=== PATIENT | female | born 1995 | race Caucasian/White ===

== ENCOUNTER 2017-02-16 03:15 | Inpatient (IN) | payer OTHER ==
[~2017-02-16] VITALS: Ht 157.5 cm; Wt 101.6 kg
[~2017-02-16 03:15] MED LIST: FERR-193 PO
[2017-02-16] MEDS ORDERED: TERBUTALINE 1 MG/ML VIAL SUBQ SCH (03:40)
[2017-02-16] MEDS ORDERED: TERBUTALINE 1 MG/ML VIAL SUBQ ONE ×2 (03:41→04:40)
[2017-02-16] MEDS ORDERED: AMPICILLIN 2,000 MG in NACL 0.9% MINI-BAG PLUS 100 ML IV SCH (03:55)
[2017-02-16] MEDS ORDERED: PREN1SGL25 PO (03:56)
[2017-02-16 04:00] VITALS: BP 117/71
[2017-02-16] MEDS ORDERED: AMPICILLIN 2,000 MG VIAL ONE ×6 (04:31→23:57)
[2017-02-16] MEDS ORDERED: BETAMETH ACET/BETAMETH NA PH 30 MG/5 ML VIAL IM ONE ×2 (05:15→18:35)
--- NOTE | 2017-02-16 09:09 | NUR ---
PATIENT HAS BEEN SCREENED AND CATEGORIZED LOW NUTRITION RISK. PATIENT WILL BE SEEN WITHIN 7 DAYS OF ADMISSION. 02/22/[address]
[2017-02-16] MEDS ORDERED: NIFEdipine 10 MG CAPLF PO SCH (10:10)
[2017-02-16] MEDS ORDERED: NIFEdipine 10 MG CAPLF PO PRN (10:15)
[2017-02-16] MEDS ORDERED: NIFEdipine 10 MG CAPLF ONE ×8 (10:27→23:57)
[2017-02-16] MEDS: LACTATED RINGERS 1,000 ML IV SCH ×2 (10:38→20:08)
[2017-02-16] MEDS: NIFEdipine 10 MG CAPLF PO SCH ×5 (10:43→16:30)
[2017-02-16] MEDS: MORPHINE SULFATE 10 MG/ML SYR IVP PRN (12:31)
[2017-02-16] MEDS ORDERED: MORPHINE SULFATE 10 MG/ML SYR ONE ×2 (12:33→21:10)
[2017-02-16] MEDS: AMPICILLIN 2,000 MG in NACL 0.9% 100 ML IV SCH ×2 (16:45→20:04)
[2017-02-16] MEDS: BETAMETH ACET/BETAMETH NA PH 30 MG/5 ML VIAL IM SCH (18:28)
[2017-02-17] MEDS: LACTATED RINGERS 1,000 ML IV SCH ×2 (02:35→06:51)
[2017-02-17] MEDS ORDERED: AMPICILLIN 2,000 MG VIAL ONE ×5 (03:52→23:13)
[2017-02-17] MEDS ORDERED: NIFEdipine 10 MG CAPLF ONE ×3 (03:53→14:39)
[2017-02-17] MEDS ORDERED: MORPHINE SULFATE 10 MG/ML SYR ONE (23:33)
[2017-02-18] MEDS ORDERED: AMPICILLIN 2,000 MG VIAL ONE ×4 (03:26→15:01)
[2017-02-18] MEDS ORDERED: ACETAMINOPHEN 325 MG TAB PO PRN (07:50)
[2017-02-18] MEDS ORDERED: ACETAMINOPHEN 325 MG TAB ONE (08:13)
[2017-02-18] MEDS: BETAMETH ACET/BETAMETH NA PH 30 MG/5 ML VIAL IM SCH (08:15)
[2017-02-18] MEDS ORDERED: BETAMETH ACET/BETAMETH NA PH 30 MG/5 ML VIAL IM ONE (08:22)
[2017-02-18] MEDS: AMPICILLIN 2,000 MG in NACL 0.9% 100 ML IV SCH ×2 (10:57→15:06)
[2017-02-18] MEDS: LACTATED RINGERS 1,000 ML IV SCH (10:58)
[2017-02-18] MEDS: MORPHINE SULFATE 10 MG/ML SYR IVP PRN (11:08)
[2017-02-18] MEDS ORDERED: MORPHINE SULFATE 10 MG/ML SYR ONE (11:14)
--- NOTE | 2017-02-18 13:25 | NUR ---
CM NOTE INITIAL REVIEW FAXED TO [facility] [phone] ENE # [phone]
== END 2017-02-18 18:35 | disposition home or self-care (01) | DRG 566 ==
LOC: MLD 03:15 → OBSVTOIN 02-18 09:49
PROVIDERS: ADMIT Obstetrics & Gynecology; ATTEND Obstetrics & Gynecology
DX: O62.9 Abnormality of forces of labor, unspecified (principal); Z3A.36 36 weeks gestation of pregnancy
CPT/HCPCS: G0378 ×55; 76805; 76815; J0290; J0702; J2270; J3105; J7120; Q0092

== ENCOUNTER 2017-02-19 05:45 | Inpatient (IN) | payer OTHER ==
[~2017-02-19] VITALS: Ht 157.5 cm; Wt 101.6 kg
[~2017-02-19 05:45] MED LIST changes: +PREN1SGL25 PO
[2017-02-19] MEDS ORDERED: LACTATED RINGERS 1,000 ML IV SCH (06:21)
[2017-02-19] MEDS ORDERED: CITRIC ACID/SODIUM CITRATE 30 ML UDC PO SCH (06:25)
[2017-02-19] MEDS ORDERED: METOCLOPRAMIDE 10 MG/2 ML INJ VIAL IVP SCH (06:25)
[2017-02-19 06:43] LABS: BASOPHILS # (AUTO) 0.1 K/uL (0.00-0.22); MEAN CORPUSCULAR HEMOGLOBIN 24 pg (27-31)
[2017-02-19 06:45] LABS: BASOPHILS % (AUTO) 0.7 % (0.0-2.0); EOSINOPHILS # (AUTO) 0.1 K/uL (0-0.4); EOSINOPHILS % (AUTO) 0.8 % (0.0-4.0); HEMOGLOBIN 7.1 g/dL (12.0-16.0); LYMPHOCYTES # (AUTO) 1.9 K/uL (2.5-16.5); LYMPHOCYTES % (AUTO) 16.1 % (20.5-51.1); MEAN CORPUSCULAR HGB CONC 31 g/dL (33-37); MEAN CORPUSCULAR VOLUME 76 fL (80-94); MONOCYTES # (AUTO) 0.6 K/uL (0.8-1.0); MONOCYTES % (AUTO) 4.9 % (1.7-9.3); NEUTROPHILS # (AUTO) 9.3 K/uL (1.8-7.7); NEUTROPHILS % (AUTO) 77.5 % (42.2-75.2); PLATELET COUNT (AUTO) 326 K/uL (140-450); RED BLOOD CELL COUNT(AUTO) 3.04 MIL/uL (4.20-5.40); RED CELL DISTRIBUTION WIDTH 16.3 % (11.6-13.7)
[2017-02-19 06:51] LABS: APPEARANCE,URINE HAZY (CLEAR); BILIRUBIN,URINE NEGATIVE (NEGATIVE); BLOOD, URINE TRACE-L (NEGATIVE); COLOR,URINE YELLOW (YELLOW); LEUKOCYTE ESTERASE ,URINE NEGATIVE (NEGATIVE); NITRITE, URINE NEGATIVE (NEGATIVE); UGLUCOSE NEGATIVE (NEGATIVE)
[2017-02-19 07:05] LABS: ALBUMIN 2.4 g/dL (3.4-5.0); CARBON DIOXIDE 22.6 mmol/L (21-32); CREATININE 0.8 mg/dL (0.6-1.3); POTASSIUM 3.6 mmol/L (3.5-5.1); TOTAL BILIRUBIN 0.3 mg/dL (0.0-1.0)
[2017-02-19 07:06] LABS: RBC,URINE 0-5 (RARE) /HPF (0-5); WBC,URINE 0-5 (RARE) /HPF (0-5)
[2017-02-19 07:12] LABS: PROTHROMBIN TIME 9.5 secs (10.8-13.4)
[2017-02-19] MEDS ORDERED: OXYTOCIN 20 UNITS in LACTATED RINGERS 1,000 ML IV SCH (07:30)
[2017-02-19] MEDS ORDERED: TRIMETHOBENZAMIDE 200 MG/2 ML SYR IM PRN (07:30)
[2017-02-19] MEDS ORDERED: oxyCODONE/APAP 5/325 MG 1 TAB TAB PO PRN (07:30)
[2017-02-19] MEDS ORDERED: IBUPROFEN 800 MG TAB PO PRN (07:30)
[2017-02-19] MEDS ORDERED: METHYLERGONOVINE 0.2 MG/ML AMP IM PRN (07:30)
[2017-02-19] MEDS ORDERED: MEASLES, MUMPS, AND RUBELLA 1 VIAL SQVAC PRN (07:30)
[2017-02-19] MEDS ORDERED: OXYTOCIN 10 UNITS/ML VIAL ONE (07:33)
[2017-02-19] MEDS ORDERED: ceFAZolin 1,000 MG VIAL ONE (07:33)
[2017-02-19] MEDS ORDERED: ePHEDrine 50 MG/ML VIAL ONE (07:55)
[2017-02-19] MEDS ORDERED: ONDANSETRON 4 MG/2 ML VIAL ONE (07:55)
[2017-02-19] MEDS ORDERED: BUPIVACAINE-MPF 0.75% 10 ML VIAL INJ ONE (07:55)
[2017-02-19] MEDS ORDERED: fentaNYL 0.05 MG/ML VIAL ONE (08:08)
[2017-02-19] MEDS ORDERED: MIDAZOLAM 2 MG/2 ML VIAL ONE (08:08)
[2017-02-19] MEDS ORDERED: MORPHINE PRES FREE 10 MG/10 ML AMP IV ONE (08:09)
[2017-02-19] MEDS ORDERED: KETAMINE 500 MG/5 ML VIAL ONE (08:09)
[2017-02-19] MEDS ORDERED: METHYLERGONOVINE 0.2 MG/ML AMP ONE (08:17)
[2017-02-19] MEDS ORDERED: CARBOPROST 250 MCG/ML AMP IM ONE (08:17)
[2017-02-19] MEDS ORDERED: ONDANSETRON 4 MG/2 ML VIAL IVP PRN (11:20)
[2017-02-19] MEDS ORDERED: diphenhydrAMINE 50 MG/ML VIAL IVP PRN (11:20)
[2017-02-19] MEDS ORDERED: KETOROLAC 30 MG/ML VIAL IVP PRN (11:20)
[2017-02-19] MEDS ORDERED: TEMAZEPAM 15 MG CAP PO PRN (21:00)
[2017-02-19] MEDS: SIMETHICONE 80 MG TAB.CHEW PO PRN (21:44)
[2017-02-19] MEDS: DOCUSATE SOD/SENNA 50/8.6 MG 1 TAB PO SCH (21:44)
[2017-02-20 06:19] LABS: BASOPHILS % (AUTO) 0.3 % (0.0-2.0); EOSINOPHILS # (AUTO) 0.2 K/uL (0-0.4); EOSINOPHILS % (AUTO) 1.3 % (0.0-4.0); LYMPHOCYTES # (AUTO) 1.8 K/uL (2.5-16.5); LYMPHOCYTES % (AUTO) 12.4 % (20.5-51.1); MEAN CORPUSCULAR HEMOGLOBIN 24 pg (27-31); MEAN CORPUSCULAR HGB CONC 31 g/dL (33-37); MEAN CORPUSCULAR VOLUME 75 fL (80-94); MONOCYTES # (AUTO) 0.9 K/uL (0.8-1.0); MONOCYTES % (AUTO) 6.3 % (1.7-9.3); NEUTROPHILS # (AUTO) 11.6 K/uL (1.8-7.7); NEUTROPHILS % (AUTO) 79.7 % (42.2-75.2); PLATELET COUNT (AUTO) 260 K/uL (140-450); RED BLOOD CELL COUNT(AUTO) 2.47 MIL/uL (4.20-5.40); RED CELL DISTRIBUTION WIDTH 15.8 % (11.6-13.7); WHITE BLOOD COUNT (AUTO) 14.5 K/uL (4.8-10.8)
[2017-02-20 06:35] LABS: HEMOGLOBIN 5.8 g/dL (12.0-16.0)
[2017-02-20 06:36] LABS: HEMATOCRIT 18.5 % (36-48)
[2017-02-20] MEDS: FERROUS SULFATE 325 MG TABEC PO SCH ×3 (08:39→17:59)
[2017-02-20] MEDS: HYDROcodone/APAP 5/325 MG 1 TAB TAB PO PRN ×2 (08:39→20:12)
[2017-02-20] MEDS: SIMETHICONE 80 MG TAB.CHEW PO PRN (20:12)
[2017-02-20] MEDS: DOCUSATE SOD/SENNA 50/8.6 MG 1 TAB PO SCH (20:12)
[2017-02-21] MEDS: HYDROcodone/APAP 5/325 MG 1 TAB TAB PO PRN ×3 (04:43→20:27)
[2017-02-21] MEDS: FERROUS SULFATE 325 MG TABEC PO SCH ×3 (08:43→18:08)
[2017-02-21] MEDS: SIMETHICONE 80 MG TAB.CHEW PO PRN ×2 (12:22→20:27)
[2017-02-21] MEDS: DOCUSATE SOD/SENNA 50/8.6 MG 1 TAB PO SCH (21:00)
[2017-02-22] MEDS: HYDROcodone/APAP 5/325 MG 1 TAB TAB PO PRN (04:36)
[2017-02-22] MEDS: FERROUS SULFATE 325 MG TABEC PO SCH ×2 (07:41→11:57)
== END 2017-02-22 16:25 | disposition home or self-care (01) | DRG 540 ==
LOC: MLD 05:45 → MFCC 08:00
PROVIDERS: ADMIT Obstetrics & Gynecology; ATTEND Obstetrics & Gynecology
PROC: 0UB70ZZ Excision of Bilateral Fallopian Tubes, Open Approach (ICD-10-PCS; 2017-02-19)
PROC: 10D00Z1 Extraction of Products of Conception, Low, Open Approach (ICD-10-PCS; principal; 2017-02-19 07:30)
DX: O34.211 Maternal care for low transverse scar from previous cesarean delivery (principal); O69.81X0 Labor and delivery complicated by cord around neck, without compression, not applicable or unspecified; Z30.2 Encounter for sterilization; Z37.0 Single live birth; Z28.21 Immunization not carried out because of patient refusal; Z3A.36 36 weeks gestation of pregnancy; Z83.3 Family history of diabetes mellitus; Z82.49 Family history of ischemic heart disease and other diseases of the circulatory system
CPT/HCPCS: 36415; 80053; 81001; 85025; 85610; 85730; 86592; 86886; 86900; 86901; J0690; J1885; J2210; J2250; J2270; J2405; J2590; J3010; J3490; J7060; J7120